=== PATIENT | female | born 1965 | race Caucasian/White ===

== ENCOUNTER 2017-05-09 17:22 | Emergency (ER) | payer MEDICAID ==
[~2017-05-09] VITALS: Ht 170.2 cm; Wt 91.8 kg
[~2017-05-09 17:22] MED LIST: LORTAB 10/3251 TAB PO
[2017-05-09] MEDS ORDERED: GABAPENTIN300 M1 PO (17:53)
[2017-05-09] MEDS ORDERED: ROPINIROLE HYDRO4 MG PO (17:54)
--- OUTSIDE RECORDS SUMMARY | 2017-05-09 18:02 | External Medical Summary Rpt | CCD ---
Author Author GRICEL Address Unknown Phone Purpose Continuity of Care Document - through 2016
--- OUTSIDE RECORDS SUMMARY | 2017-05-09 18:03 | External Medical Summary Rpt | CCD ---
Author Author [employer] Organization [employer] Address Unknown Phone Unavailable Purpose Continuity of Care Document - through 2016
--- OUTSIDE RECORDS SUMMARY | 2017-05-09 18:04 | External Medical Summary Rpt ---
Author Author [employer] Gale, [employer] Organization [employer] Address Unknown Phone Unavailable
--- OUTSIDE RECORDS SUMMARY | 2017-05-09 18:04 | External Medical Summary Rpt | CCD ---
Demographics Preferred Language Syriac Marital Status Unknown Episcopal Affiliation Unknown Race Unknown Ethnic Group Unknown Author Author , GRICEL KILGORE Address Unknown Phone Immunization Unable to retrieve immunization data due to connection failure with Immunization Registry. Please try again later.
--- OUTSIDE RECORDS SUMMARY | 2017-05-09 18:04 | External Medical Summary Rpt | CCD ---
Demographics Preferred Language Japanese Marital Status Unknown Cheondoism Affiliation Unknown Race Unknown Ethnic Group Unknown Author Author , GRICEL KILGORE Address Unknown Phone Immunization Unable to retrieve immunization data due to connection failure with Immunization Registry. Please try again later.
--- NOTE | 2017-05-09 18:24 | Emergency Room Report ---
History of Present Illness Time Seen by 180 Presenting Problem in Triage Pt arrived:Wheelchair Presenting Problem:PT STATES SHE CAN'T KEEP ANYTHING DOWN. SHE HAS BEEN VOMITING OR HAVING DIARRHEA SINCE LAST NIGHT. C/O HEADACHE AND EAR PRESSURE. 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 N Clinical Suspician of Infection? N Mental Status: 1 - Regular (Normal Baseline) Sepsis Risk:Possible Sepsis Risk Have you (or family members/close friends) recently traveled outside the [place]? N If Yes, where/when: Have you had exposure to infectious disease within the past month? N TB? Other? Specify: Comment The patient has a 12 hour history of profuse watery diarrhea and 3 episodes of vomiting. She has some occasional lower abdominal cramping. No blood in her stool. No fever. She is thirsty and feels dehydrated. She has no known exposures to similar illnesses, no recent travel or antibiotics. Her last episode of diarrhea was at 3 PM. ALLERGIES Coded Allergies: azithromycin (Mild, 07/17/16) morphine (Mild, 07/17/16) oxycodone (From PERCOCET) (Mild, 07/17/16) latex (05/09/17) propofol (05/09/17) Home Medications Reported Medications Gabapentin 300 MG PO BID #120 ROPINIROLE HCL (Ropinirole Hydrochloride) 4 MG PO HS #60 History Medical History General CAD? No Angina: No HI: No Hypertension? No Hyperlipidemia? Yes CHF? No DVT? No PE? No COPD? No Asthma? No Anemia? No GERD? Yes Gastric ulcers? No GI Bleed? No Hernia? No Thyroid Problems? No Hypothyroidism? No CVA? No Seizures? No Diabetes? No Renal Insuffiency? No End Stage Renal Disease? No UTI? No Stones? No BPH? No GB Disease: No Nephritic Syndrome? No Asplenia? No Hepatitis? No Sickle Cell Disease? No Arthritis? No Migraines? No Cataracts? No Glaucoma? No MRSA? No HIV? No TB? No Anxiety? No Depression? No Cancer? No Site: N More? Yes Additional hx: MS CHRONIC BACK PAIN Immunization Hx DT/Tetanus 1-4 Years Ago Surgical Hx Previous Surgery?Y APPY [employer]ERK Hx LMP 3 Weeks Ago Social History Smoking Hx Smoker: Current Every Day Smoker Tobacco: Yes Type Cigarettes Packs/day 1 1/2 - 2 Packs Alcohol Alcohol: No Review of Systems All Other Systems Reviewed and Negative Constitutional denies fever Gastrointestinal abdominal pain, diarrhea, nausea, vomiting Physical Exam Vital Signs Vital Signs Date Time Temp Pulse Resp B/P Pulse O2 O2 Flow FiO2 Ox Delivery Rate 05/09 1919 98.5 96 18 117/67 97 05/09 1743 97.7 91 20 110/63 95 General Appearance no apparent distress Eye Exam - bilateral eye normal exam, bilateral eye PERRL, bilateral eye EOMI Ear, Nose, Throat Dry mucous membranes Neck normal inspection, non-tender, supple, full range of motion Respiratory Status Yes: trachea midline, chest symmetrical. No: respiratory distress. Lung Sounds bilateral: normal breath sounds, lungs clear. Cardiovascular normal exam, regular rate/rhythm, no peripheral edema, no gallop, no JVD, no murmur, no rub, normal peripheral pulses Peripheral Pulses Pulses normal Yes Gastrointestinal normal bowel sounds, normal exam, non tender, soft, no organomegaly Extremities normal inspection Neurologic alert, oriented x 3 Mental status normal mood/affect Skin intact, normal color, warm/dry Medical Decision Making LABS/Meds/Orders Pt receiving controlled substance in ED? No Results/Orders Laboratory Tests 05/09/17 1904: Sodium 137, Potassium 4.3, Chloride 105, Carbon Dioxide 26, BUN 18, Creatinine 1.0, Estimated Creat Clear 98, Estimated GFR (MDRD) 59, Glucose 99, Calcium 8.9, Total Bilirubin 0.4, AST 30, ALT 50, Alkaline Phosphatase 107, Total Protein 7.7 , Albumin 3.6, Globulin 4.1 H, Albumin/Globulin Ratio 0.9 L, Amylase 49, Lipase 106, WBC 12.3 H, RBC 4.15 L, Hgb 13.2, Hct 39.3, MCV 94.6, RDW 16.4, Plt Count 184, MPV 7.5, Gran % 70.9, Gran # 8.7 H, Lymphocytes % 19.1, Monocytes % 7.9, Eosinophils % 1.3, Basophils % 0.8, Lymphocytes # 2.3, Monocytes # 1.0, Eosinophils # 0.2, Basophils # 0.1, PUBS MCHC 33.6, MCH 31.8 H Current Medication Orders Sig/Puja Start time Last Medication Dose Route Stop Time Status Admin Ondansetron HCl 4 MG ONCE ONE 05/09 2000 AC IV 05/09 2001 Sodium Chloride 10 ML PRN PRN 05/09 183 AC IV 05/10 1821 Sodium Chloride 1,000 ML .Q1H1M 05/09 1830 DC 05/09 IV 05/09 1930 185 Sodium Chloride 10 ML PRN PRN 05/09 1830 AC IV 05/10 182 Sodium Chloride 1,000 ML .STK-MED ONE 05/09 1824 DC IV Orders Procedure Date/time Status DIARRHEA PANEL, PCR 05/09 1913 Active IV SALINE LOCK 05/09 1821 Active LIPASE 05/09 1821 Complete CBC WITH AUTO DIFF 05/09 1821 Complete CHEM 12 PROFILE 05/09 1821 Complete AMYLASE 05/09 1821 Complete Progress - 7:45 PM: Patient states feeling better. No diarrhea in the emergency room so far. We discussed the disposition. She says she would prefer to be discharged. I feel this is reasonable. If she provides a stool sample for diarrhea panel, she does not want to wait for results tonight, but will follow up results tomorrow with primary care physician. Departure Departure Disposition DC Home or Self Care(routine) Clinical Impression Primary Impression: Acute gastroenteritis Secondary Impressions: Dehydration Condition STABLE Referrals SONIA ANGELA (Family) Patient Instructions DI for Dehydration -- Adult, DI for Diarrhea and Traveler's Diarrhea -- Adult, DI for Vomiting -- Adult Additional Instructions Additional instructions for VOMITING/DIARRHEA: See your physician as soon as possible for further evaluation if symptoms persist. Return immediately if severe abdominal pain, uncontrollable vomiting, shortness of breath, fever, vomiting of blood or abdominal distention. Prescriptions Current Visit Scripts Ondansetron (Zofran 4MG Odt) 4 MG PO Q8HP PRN NAUSEA AND VOMITING #10 ODT ED Critical Care Critical Care No at 1999
[2017-05-09 19:12] LABS: HEMOGLOBIN 13.2 g/dL (12.2-16.2); LYMPH # 2.3 K/mm3 (0.7-4.5); LYMPH % 19.1 % (10-50.0)
[2017-05-09] MEDS ORDERED: ZOFRAN ODT4 MG PO (19:53)
[2017-05-09 20:18] VITALS: BP 111/42
== END 2017-05-09 20:19 | disposition home or self-care (01) ==
LOC: ER 17:22
PROVIDERS: Emergency Medicine
DX: K52.9 Noninfective gastroenteritis and colitis, unspecified (principal); E86.0 Dehydration; F17.210 Nicotine dependence, cigarettes, uncomplicated; K21.9 Gastro-esophageal reflux disease without esophagitis
CPT/HCPCS: J2405